=== PATIENT | female | born 1960 | race Caucasian/White ===

== ENCOUNTER → 2017-02-18 | Outpatient (CLI) | payer BC | LOC: LAB 14:15 | DX: E03.9 Hypothyroidism, unspecified (principal) | CPT/HCPCS: 36415; 84439; 84443 ==

== ENCOUNTER → 2021-01-30 | Outpatient (CLI) | payer BC | LOC: LAB 16:41 | DX: E03.9 Hypothyroidism, unspecified (principal) | CPT/HCPCS: 84439; 84443 ==

== ENCOUNTER → 2021-02-12 | Outpatient (CLI) | payer BC | LOC: KOH-I 02-11 16:15 | DX: S83.422A Sprain of lateral collateral ligament of left knee, initial encounter (principal); M25.462 Effusion, left knee; S83.242A Other tear of medial meniscus, current injury, left knee, initial encounter; M71.22 Synovial cyst of popliteal space [Baker], left knee; M47.26 Other spondylosis with radiculopathy, lumbar region; M51.16 Intervertebral disc disorders with radiculopathy, lumbar region; M48.061 Spinal stenosis, lumbar region without neurogenic claudication; M47.817 Spondylosis without myelopathy or radiculopathy, lumbosacral region; M51.27 Other intervertebral disc displacement, lumbosacral region; M48.07 Spinal stenosis, lumbosacral region; X58.XXXA Exposure to other specified factors, initial encounter | CPT/HCPCS: 72148; 73721 ==

== ENCOUNTER → 2021-03-12 | Outpatient (CLI) | payer BC | LOC: KOH-I 02-28 08:00 | DX: M25.552 Pain in left hip (principal); S39.013A Strain of muscle, fascia and tendon of pelvis, initial encounter; M70.62 Trochanteric bursitis, left hip | CPT/HCPCS: 73721 ==

== ENCOUNTER → 2021-03-18 | Outpatient (CLI) | payer BC ==
[2021-03-18 10:21] LABS: HEMOGLOBIN 12.9 gm/dl (12.3-15.3); RED BLOOD COUNT 3.58 M/UL (4.00-5.10); WHITE BLOOD COUNT 4.9 K/UL (4.5-11.0)
[2021-03-18 10:47] LABS: BUN/CREATININE RATIO 15 (0-10)
== END ==
LOC: LAB 09:16
PROVIDERS: Internal Medicine
DX: E03.9 Hypothyroidism, unspecified (principal)
CPT/HCPCS: 80048; 80061; 80076; 84439; 84443; 85025

== ENCOUNTER → 2021-07-04 | Outpatient (CLI) | payer BC | LOC: LAB 10:20 | DX: E03.9 Hypothyroidism, unspecified (principal) | CPT/HCPCS: 36415; 84439; 84443 ==

== ENCOUNTER → 2021-09-27 | Outpatient (CLI) | payer BC ==
[2021-09-27 13:33] LABS: HEMOGLOBIN 13.2 gm/dl (12.3-15.3); RED BLOOD COUNT 3.67 M/UL (4.00-5.10); WHITE BLOOD COUNT 6.3 K/UL (4.5-11.0)
[2021-09-27 13:56] LABS: BUN/CREATININE RATIO 16 (0-10)
== END ==
LOC: LAB 13:04
PROVIDERS: Internal Medicine
DX: E03.9 Hypothyroidism, unspecified (principal)
CPT/HCPCS: 36415; 80048; 80061; 80076; 84439; 84443; 85025

== ENCOUNTER → 2021-12-09 | Outpatient (CLI) | payer BC | LOC: KOH-I 15:32 | DX: J20.9 Acute bronchitis, unspecified (principal) | CPT/HCPCS: 71046 ==

== ENCOUNTER → 2022-04-15 | Outpatient (CLI) | payer BC | LOC: LAB 11:29 | DX: E03.9 Hypothyroidism, unspecified (principal) | CPT/HCPCS: 36415; 84439; 84443 ==

== ENCOUNTER → 2022-08-18 | Outpatient (CLI) | payer BC | LOC: LAB 13:25 | DX: E03.9 Hypothyroidism, unspecified (principal) | CPT/HCPCS: 36415; 84439; 84443 ==